=== PATIENT | female | born 1935 | race Caucasian/White ===

== ENCOUNTER → 2019-04-12 | Outpatient (CLI) | payer MEDICARE, BC | END | disposition home or self-care (01) | LOC: PCVCCLINIC 14:00 | PROVIDERS: ATTEND Internal Medicine Cardiovascular Disease | DX: R06.00 Dyspnea, unspecified (principal); R06.02 Shortness of breath; I10 Essential (primary) hypertension; E78.00 Pure hypercholesterolemia, unspecified; R94.31 Abnormal electrocardiogram [ECG] [EKG]; I12.9 Hypertensive chronic kidney disease with stage 1 through stage 4 chronic kidney disease, or unspecified chronic kidney disease; E11.22 Type 2 diabetes mellitus with diabetic chronic kidney disease; N18.3 Chronic kidney disease, stage 3 (moderate); K21.9 Gastro-esophageal reflux disease without esophagitis; Z88.0 Allergy status to penicillin; Z88.8 Allergy status to other drugs, medicaments and biological substances; Z79.4 Long term (current) use of insulin; Z79.899 Other long term (current) drug therapy | CPT/HCPCS: 93005; G0463 ==

== ENCOUNTER → 2019-05-16 | Outpatient (CLI) | payer MEDICARE, BC ==
[~2019-05-16] MED LIST: REGADENOSON 0.4 MG/5 ML DISP.SYRIN. IV ONE
--- NOTE | 2019-05-16 10:57 | PCVCIMAG ---
APPROVED REPORT Study performed: 05/16/2019 09:12:39 EXAM: Comprehensive 2D, Doppler, and color-flow Echocardiogram Patient Location: Echo lab Status: routine BSA: 2.08 HR: 68 bpmBP: 112/60 mmHg Rhythm: NSR Other Information Study Quality: Adequate Risk Factors: Cardiac Risk Factors: HTN, Hyperlipidemia 2D Dimensions IVSd: 13.57 (7-11mm)LVOT Diam: 19.68 (18-24mm) LVDd: 31.82 mm PWd: 13.15 (7-11mm)Ascending Ao: 36.28 (22-36mm) LVDs: 27.87 (25-40mm) Left Atrium: 34.19 (27-40mm) Aortic Root: 36.82 mm LV Single Plane 4CH: 53.27 % LV Single Plane 2CH: 73.64 % Biplane EF: 61.9 % Volumes Left Atrial Volume (Systole) Single Plane 4CH: 25.74 mLSingle Plane 2CH: 23.02 mL LA ESV Index: 13.00 mL/m2 Aortic Valve AoV Peak Da.: 1.95 m/s AO Peak Gr.: 15.14 mmHgLVOT Max P.66 mmHg LVOT Max V: 1.38 m/s PARAG Vmax: 2.16 cm2 Mitral Valve E/A Ratio: 0.9 MV Decel. Time: 320.60 ms MV E Max Da.: 0.82 m/s MV A Da.: 0.96 m/s IVRT: 103.81 ms TDI E/Lateral E': 11.71E/Medial E': 9.11 Medial E' Da.: 0.09 m/s Lateral E' Da.: 0.07 m/s Pulmonary Vein P Vein S: 0.44 m/sP Vein A: 0.39 m/s P Vein D: 0.36 m/sP Vein A Dur.: 76.1 msec P Vein S/D Ratio: 1.22 Left Ventricle The left ventricle is normal size. There is normal LV segmental wall motion. There is normal left ventricular wall thickness. Left ventricular systolic function is normal. The left ventricular ejection fraction is within the normal range. LVEF is 55-60%. Grade I - abnormal relaxation pattern. Right Ventricle The right ventricle is normal size. The right ventricular systolic function is normal. Atria The left atrium size is normal. The right atrium size is normal. Aortic Valve The aortic valve is normal in structure. No aortic regurgitation is present. There is no aortic valvular stenosis. Mitral Valve The mitral valve is normal in structure. There is no mitral valve regurgitation noted. No evidence of mitral valve stenosis. Tricuspid Valve The tricuspid valve is normal in structure. There is no tricuspid valve regurgitation noted. Pulmonic Valve The pulmonary valve is normal in structure. There is no pulmonic valvular regurgitation. Great Vessels The aortic root is normal in size. IVC is normal in size and collapses >50% with inspiration. Pericardium There is no pericardial effusion. <Conclusion> The left ventricle is normal size. There is normal left ventricular wall thickness. Left ventricular systolic function is normal. Grade I - abnormal relaxation pattern. The right ventricle is normal size. The left atrium size is normal. The aortic valve is normal in structure. The mitral valve is normal in structure. There is no tricuspid valve regurgitation noted.
--- NOTE | 2019-05-16 13:47 | PCVCIMAG ---
APPROVED REPORT Imaging Protocol: Rest Tc-99m/Stress Tc-99m 1 day Study performed: 05/16/2019 10:41:43 Indication: Dyspnea Patient Location: Out-Patient Stress Nurse: Yamilex Reed RN, TIKI Ennis Tech:Pradeep Forman [id number] Ht: 5 ft 6 in Wt: 220 lbs BSA: 2.08 m2 HR: 65 bpm BP: 123/60 mmHg BMI: 35.50 Rhythm: Normal Sinus Rhythm, Nonspecific T wave Abnormality Medical History Medical History: Age, Hyperlipidemia, HTN, Dyspnea, Dm Insulin Medications: Insulin, Pravachol, Cozaar, Januvia Allergies: Ampicillin, Clindamycin, Metformin, PCN Exercise History: Sedentary Physical Disabilities: Arthritis Resting Data Rest SPECT myocardial perfusion imaging was performed in supine position 45 minutes following the intravenous injection of 11.2 mCi of Tc-99m Sestamibi. Time of rest injection: 1000 Date: 05/16/2019 Administration Route: IV Administration Site: Right AC Pharmacologic Stress Pharmacologic stress test was performed by injecting Regadenoson 0.4 mg IV push over 10-15 seconds immediately followed by the intravenous injection of 33.6 mCi of Tc-99m Sestamibi. Time of stress injection: 1130 Date: 05/16/2019 Administration Route: IV Administration Site: Right AC Gated Stress SPECT was performed 45 minutes after stress injection. The images were gated to evaluate regional wall motion and calculate left ventricular ejection fraction. Stress Test Details Stress Test: Pharmacologic stress testing performed using 0.4 mg of regadenoson per 5 mL given IV over 10 seconds. Reason for pharmacologic stress test: Arthritis. HRMax Heart Rate (APMHR): 137 bpm Resting HR: 65 bpmTarget HR (85% APMHR): 116 bpm Max HR Achieved: 85 bpm % of APMHR: 62 Recovery HR: 73 bpm BP Resting BP: 123/60 mmHg Max BP: 123/74 mmHg Recovery BP: 121/59 mmHg ECG Resting ECG: Sinus Rhythm, nonspecific ST-T abnormalities Stress ECG: Sinus Rhythm, nonspecific ST-T abnormalities ST Change: Non-ischemic Arrhythmia: None Recovery ECG: Sinus Rhythm, nonspecific ST-T abnormalities Clinical Reason for Termination: Completed protocol Stress Symptoms: Dyspnea Symptoms resolved during recovery. Study Quality Study: Good Artifact: Moderate Diaphragmatic artifact Study Data Post stress, the left ventricular ejection was 77%.. SSS: 7 SRS: 7 SDS: 3 Perfusion There is a medium area of moderately reduced uptake in the basal and mid segment of the inferior wall which is seen on the stress images as well as the resting images. This area thickens and moves normally and is most consistent with attenuation artifact. Wall Motion Normal left ventricular wall motion. Nuclear Conclusion ECG Findings: negative for ischemia Clinical Findings: non-diagnostic Nuclear Findings: negative for ischemia Exercise Capacity: not assessed Left Ventricular Function: normal This study is of low probability for inducible ischemia or prior infarct. Normal global and segmental LV systolic function. Artifact: Moderate Diaphragmatic artifact
== END | disposition home or self-care (01) ==
LOC: PCVCIMAG 08:54
PROVIDERS: ATTEND Internal Medicine Cardiovascular Disease
DX: R06.00 Dyspnea, unspecified (principal); I10 Essential (primary) hypertension; E78.00 Pure hypercholesterolemia, unspecified; K21.9 Gastro-esophageal reflux disease without esophagitis; E78.5 Hyperlipidemia, unspecified
CPT/HCPCS: 78452; 93017; 93306; A9500; G0463; J2785